=== PATIENT | female | born 1960 | race Caucasian/White ===

== ENCOUNTER 2018-06-08 08:29 | Inpatient (IN) ==
[2018-06-08] MEDS ORDERED: Vancomycin Inj 1 GM/200 ML PIGGYBACK IV.SIG SCH (09:00)
[2018-06-08] MEDS ORDERED: Chlorhexidine Gluconate 2% 1 Pack (2 Cloths) TOPICAL SCH (09:15)
[2018-06-08] MEDS ORDERED: Metoprolol Tartrate 25 MG Tablet PO SCH (09:15)
[2018-06-08 09:34] LABS: Baso # (Auto) 0.1 th/mm3 (0.0-0.2); Baso % (Auto) 1.3 % (0.0-2.0); Eos # (Auto) 0.1 th/mm3 (0.0-0.4); Eos % (Auto) 2.9 % (0.0-4.0); Hematocrit 41.8 % (35.0-46.0); Hemoglobin 14.3 gm/dL (11.6-15.3); Lymph # (Auto) 1.1 th/mm3 (1.0-4.8); Lymph % (Auto) 24.3 % (9.0-44.0); Mean Corpuscular HGB Conc 34.2 % (32.0-36.0); Mean Corpuscular Hemoglobin 33.2 pg (27.0-34.0); Mean Corpuscular Volume 97.1 fL (80.0-100.0); Mean Platelet Volume 8.6 fL (7.0-11.0); Mono # (Auto) 0.5 th/mm3 (0.0-0.9); Mono % (Auto) 11.8 % (0.0-8.0); Neut # (Auto) 2.7 th/mm3 (1.8-7.7); Neut % (Auto) 59.7 % (16.0-70.0); Platelet Count 251 th/mm3 (150-450); Red Blood Count 4.31 mil/mm3 (4.00-5.30); Red Cell Distribution Width 13.1 % (11.6-17.2); White Blood Count 4.6 th/mm3 (4.0-11.0)
[2018-06-08 09:59] LABS: Alanine Aminotransferase 56 U/L (10-53); Alkaline Phosphatase 126 U/L (45-117); Total Protein 8.4 g/dL (6.4-8.2)
[2018-06-08] MEDS ORDERED: Sodium Chlor 0.9% Inj 500 ML IV.SIG SCH (10:00)
[2018-06-08] MEDS ORDERED: Vancomycin Inj 1,000 MG in Sodium Chlor 0.9% Inj 250 ML IV.SIG SCH (10:00)
[2018-06-08 10:13] LABS: Albumin 4.2 g/dL (3.4-5.0); Anion Gap 6 meq/L (5-15); Blood Urea Nitrogen 4 mg/dL (7-18); Calcium 9.7 mg/dL (8.5-10.1); Carbon Dioxide 28.4 meq/L (21.0-32.0); Chloride 99 meq/L (98-107); Glomerular Filtration Rate Greater Than 89 mL/min (>89); Glucose,Random 80 mg/dL (74-106); Sodium 133 meq/L (136-145)
[2018-06-08 10:21] LABS: Aspartate Aminotransferase 64 U/L (15-37); Potassium 5.3 meq/L (3.5-5.1)
[2018-06-08 11:49] LABS: Alanine Aminotransferase 49 U/L (10-53); Albumin 3.8 g/dL (3.4-5.0); Alkaline Phosphatase 112 U/L (45-117); Anion Gap 6 meq/L (5-15); Aspartate Aminotransferase 41 U/L (15-37); Blood Urea Nitrogen 5 mg/dL (7-18); Carbon Dioxide 29.5 meq/L (21.0-32.0); Chloride 101 meq/L (98-107); Glomerular Filtration Rate Greater Than 89 mL/min (>89); Glucose,Random 82 mg/dL (74-106); Potassium 4.1 meq/L (3.5-5.1); Sodium 136 meq/L (136-145)
[2018-06-08] MEDS ORDERED: Neostigmine Inj 5 MG/5 ML Syringe IV.PUSH ONE (12:00)
[2018-06-08] MEDS ORDERED: Lidocaine PF 1% Inj 5 ML Syringe INFILTRATN ONE (12:00)
[2018-06-08] MEDS ORDERED: Glycopyrrolate Inj 1 MG/5 ML Syringe IV.PUSH ONE (12:00)
[2018-06-08] MEDS ORDERED: hydrALAZINE HCl Inj 20 MG/ML Vial IV.PUSH ONE (12:00)
[2018-06-08] MEDS ORDERED: Ketorolac Inj 30 MG/ML (IVP) Vial IV.PUSH ONE (12:00)
[2018-06-08] MEDS ORDERED: Ropivacaine 0.5% PF Inj 20 ML Vial ONE (12:37)
[2018-06-08] MEDS ORDERED: fentaNYL Citrate Inj 250 MCG/5 ML Ampul ONE (12:37)
[2018-06-08] MEDS: Bupivacaine/Epinephrine Inj 0.25% 50 ML Vial ONE ×2 (13:34→19:26)
--- NOTE | 2018-06-08 14:42 | ECG ---
Date Performed: 06/08/2018 Time Performed: 09:09:55 PTAGE: 57 years EKG: Sinus rhythm POSSIBLE RIGHT VENTRICULAR CONDUCTION DELAY BORDERLINE ECG NO PREVIOUS TRACING DOCTOR: Ronak Gutierres Interpretating Date/Time 06/08/2018 14:36:52
[2018-06-08] MEDS ORDERED: *morphine SULFATE 10 MG/ML PERIprocedure ONLY ONE (15:40)
[2018-06-08] MEDS ORDERED: Bisacodyl 10 MG Supp RECTAL PRN (15:46)
[2018-06-08] MEDS ORDERED: Post-op Orders (for Pharmacy) OTHER ONE (15:46)
[2018-06-08] MEDS ORDERED: Naloxone Inj 0.4 MG/ML Vial IV.PUSH PRN ×2 (15:46→15:50)
[2018-06-08] MEDS ORDERED: Promethazine 25 MG Supp RECTAL PRN (15:46)
[2018-06-08] MEDS ORDERED: Morphine Inj 4 MG/ML Vial IV.PUSH PRN (15:46)
--- NOTE | 2018-06-08 15:46 | P.OP ---
- Preoperative Diagnosis (1) Epigastric hernia - Postoperative Diagnosis (1) Epigastric hernia (2) Umbilical hernia Date of procedure: 06/09/18 Procedure: Laparoscopic epigastric hernia repair with [place]-Alex DualMesh Primary umbilical hernia repair Implants: 14 x 19 cm [place]-Alex DualMesh Anesthesia: SANDRA Surgeon: Lopez Mccoy MD Customer Experience Intern: Cara Dent CFA Estimated blood loss (mL): 20 IV fluids (mL): 1,400 Pathology: none sent Operation and Findings: The patient was taken to the operating room and placed on the operating table in the supine position. After an adequate level of general endotracheal anesthesia was achieved, transabdominal peritoneal block was accomplished bilaterally. The abdomen was then prepped and draped in the usual fashion. Timeout was taken , confirming the correct patient, site, and procedure to be performed. Skin and subcutaneous tissue was infiltrated with local anesthetic and an incision made in the left upper quadrant. Muscles were bluntly. As the peritoneal cavity was not directly visualized, a 5 mm trocar was brought in via the right upper quadrant under direct vision utilizing the laparoscope. This entered the abdominal cavity under direct vision uneventfully. The left upper quadrant trocar was then able to be placed after opening the peritoneum which was the only layer left in the dissection. The balloon was then inflated. 2 5 mm trochars were then placed with one in the left lower quadrant and one in the right lower quadrant. Both were placed under direct vision uneventfully. The patient was noted to have a small umbilical hernia as well as the epigastric hernia. Fatty tissue was taken down out of the epigastric hernia and the falciform ligament was taken down as well so that the mesh would sit on fascia and not have fat underneath to minimize risk of recurrence. The umbilical hernia was repaired using #1 V-lock looped suture. This was placed in a running fashion with the suture run back across itself. When this was completed, the hernia defect was measured and a 15 x 19 cm [place] Alex DualMesh was chosen to overlap the previous defect. The mesh had four 0- [place] sutures placed in it and the mesh was then rolled up and placed into the abdominal cavity. The mesh was unfurled and tacked into place with the 4 sutures utilizing the suture passer device. The mesh was appropriately spread apart and the Capture device was used to tack the mesh around the perimeter. When this was completed the inferior part of the mesh was found to be overlapped beyond the umbilicus. Thus there was mesh overlap over the umbilical hernia repair. When this was completed, four additional 0 [place] sutures were used in between the previously placed 4 sutures. When this was completed insufflation was discontinued and the trocars were removed under direct vision. No bleeding was noted from the trocar sites. The laparoscope and left upper quadrant port were removed. The fascia was closed in the left upper quadrant with 0 Vicryl suture. The skin was closed at all of the trocar sites with 4-0 Vicryl in an interrupted buried fashion. All sites were dressed with Steri-Strips. The patient was extubated and had abdominal binder placed. She was taken back to the recovery room in stable condition. Sponge and needle counts were reported to be correct.
[2018-06-08] MEDS ORDERED: Morphine Inj 30 MG/30 ML PCA.VIAL PCA PRN (15:50)
[2018-06-08] MEDS ORDERED: Morphine Inj 30 MG/30 ML PCA.VIAL PCA ONE (15:58)
[2018-06-08] MEDS: Sod Chloride 0.9% Inj 1,000 ML IV.CONT SCH (16:00)
[2018-06-08] MEDS: Senna/Docusate Sodium 8.6/50 MG Tablet PO SCH (20:45)
[2018-06-08] MEDS: Famotidine 20 MG Tablet PO SCH (20:45)
[2018-06-09] MEDS: Sod Chloride 0.9% Inj 1,000 ML IV.CONT SCH ×3 (02:51→21:34)
[2018-06-09] MEDS: Famotidine 20 MG Tablet PO SCH ×2 (08:50→21:33)
[2018-06-09] MEDS: Senna/Docusate Sodium 8.6/50 MG Tablet PO SCH ×2 (08:50→21:34)
--- NOTE | 2018-06-09 12:12 | P.PN ---
Subjective Interval history: Feels well; reports no flatus yet. Minimal to no pain. 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 Physical Exam Vital signs: Vital Signs 06/08/18 15:28 06/08/18 15:45 06/08/18 16:00 Temperature 97.4 F L Pulse Rate 87 88 70 Respiratory Rate 17 17 17 Blood Pressure 148/74 H 158/72 H 141/77 H Pulse Oximetry 06/08/18 16:46 06/08/18 17:31 06/08/18 19:31 Temperature Pulse Rate 87 Respiratory Rate 17 17 Blood Pressure 135/78 Pulse Oximetry 95 06/08/18 20:00 06/09/18 00:00 06/09/18 04:00 Temperature 97.3 F L 97.3 F L 97.3 F L Pulse Rate 56 L 62 61 Respiratory Rate 18 18 18 Blood Pressure 143/66 H 137/63 135/76 Pulse Oximetry 98 99 96 06/09/18 08:00 06/09/18 08:45 06/09/18 11:25 Temperature 97.6 F Pulse Rate 90 Respiratory Rate 18 Blood Pressure 146/86 H Pulse Oximetry 92 L 87 L 95 Intake & Output 06/08/18 06/09/18 06/09/18 18:59 06:59 18:59 Intake Total 1850 / 1850 1780 / 1780 Output Total 30 / 30 Balance 1820 / 1820 1780 / 1780 Weight 49.6 kg 53.2 kg Intake: IV 450 / 450 1300 / 1300 NS Inj 1,000 ML @ 100 mls/hr IV 1000 / 1000 .CONT .Q10H STEPHENIE Rx#:[id number] Ofirmev Inj 1,000 mg In 100 ml 100 / 100 300 / 300 @ 400 mls/hr IV.SIG Q6H STEPHENIE Rx# :[id number] Vancomycin Inj 1,000 MG In NS 250 / 250 Inj 250 ML @ 200 mls/hr IV.SIG PRIMARY MILL ROLLER STEPHENIE Rx#:[id number] Ancef Inj 1,000 MG In NS Inj 100 / 100 100 ML @ 200 mls/hr IV.SIG PRIMARY MILL ROLLER STEPHENIE Rx#:[id number] Oral 480 / 480 Anesthesia Amount 1400 / 1400 Output: Estimated Blood Loss 30 / 30 Other: # Voids 3 Date of Last Bowel Movement 06/07/18 Weight On Admission 49.6 kg Results - Labs CBC & Chem 7: 06/08/18 08:10 06/08/18 11:14 Assessment and Plan - Assessment (1) Epigastric hernia Code(s): K43.9 - Ventral hernia without obstruction or gangrene Status: Acute Plan: Postop day 1 status post laparoscopic repair with [place]-Alex DualMesh. Doing well. Requiring oxygen for likely untreated and undiagnosed COPD from long- term smoking history. Will try to wean O2 before she leaves. Will decrease IV fluids also. (2) Umbilical hernia Code(s): K42.9 - Umbilical hernia without obstruction or gangrene Status: Acute - Plan Discussed Condition With: Patient, nurse Monie Giron, sister. - Attending Attestation I attest that I had a [id number] encounter with the patient on the same day, and personally performed and documented my assessment and findings in the medical record. The following services were provided during this hospital visit: Chart data review, vital sign assessments/reviewing monitor data Review of consultation notes if present Medication orders/review and/or management Ordering and/or reviewing lab tests Ordering and/or interpreting/reviewing x-rays and/or diagnostic studies Care of the patient and discussion of the patient with the care team Documentation time To help prompt me to consider important information that might be impacting today's encounter and assessment, Information from prior notes written by myself or my colleagues may have been "brought forward/copy and pasted" into today's note.
[2018-06-09] MEDS: Enoxaparin Inj 40 MG/0.4 ML Syringe SQ SCH (14:22)
--- NOTE | 2018-06-09 15:33 | XR ---
EXAM DATE: 06/09/2018 3:05 PM EDT AGE/SEX: 57 years / Female INDICATIONS: Shortness of breath. CLINICAL DATA: This is the patient's initial encounter. Patient reports that signs and symptoms have been present for 1 day and indicates a pain score of 0/10. MEDICAL/SURGICAL HISTORY: None. None. COMPARISON: No prior exams available for comparison. FINDINGS: There is a mild infiltrate in the right lung base. The left lung is grossly clear. The heart size is upper limits of normal. The bony structures are grossly intact. There are no pleural effusions or pul monary edema. CONCLUSION: Mild infiltrate in the right lung base. Electronically signed by: Darryl Carlson MD 06/09/2018 3:31 PM EDT
[2018-06-10] MEDS: Senna/Docusate Sodium 8.6/50 MG Tablet PO SCH ×2 (08:32→20:17)
[2018-06-10] MEDS: Famotidine 20 MG Tablet PO SCH ×2 (08:32→20:17)
[2018-06-10] MEDS: Sod Chloride 0.9% Inj 1,000 ML IV.CONT SCH ×2 (10:53→13:02)
--- NOTE | 2018-06-10 11:24 | P.PNGS ---
Subjective Patient reports: no new complaints, no flatus, no bowel movement (HTN) Physical Exam Vital signs: Vital Signs 06/09/18 11:25 06/09/18 12:00 06/09/18 15:42 Temperature 97.6 F Pulse Rate 69 Respiratory Rate 18 Blood Pressure 148/67 H Pulse Oximetry 95 96 95 06/09/18 15:47 06/09/18 20:00 06/10/18 00:00 Temperature 97.4 F L 98 F 98 F Pulse Rate 66 84 83 Respiratory Rate 18 17 17 Blood Pressure 162/75 H 182/79 H 194/88 H Pulse Oximetry 99 96 17 L 06/10/18 04:00 06/10/18 06:02 06/10/18 08:00 Temperature 98.1 F 98.1 F Pulse Rate 97 H 84 Respiratory Rate 18 18 Blood Pressure 208/96 H 182/88 H 180/80 H Pulse Oximetry 93 L 93 L 06/10/18 08:31 Temperature Pulse Rate Respiratory Rate Blood Pressure Pulse Oximetry 94 L Intake & Output 06/09/18 06/10/18 06/10/18 18:59 06:59 18:59 Intake Total 1720 / 1720 1480 / 1480 1000 / 1000 Balance 1720 / 1720 1480 / 1480 1000 / 1000 Intake: IV 1000 / 1000 1000 / 1000 1000 / 1000 NS Inj 1,000 ML @ 30 mls/hr IV. 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
[2018-06-10] MEDS: amLODIPine 5 MG Tablet PO SCH (13:14)
[2018-06-10] MEDS: Enoxaparin Inj 40 MG/0.4 ML Syringe SQ SCH (15:12)
[2018-06-10] MEDS ORDERED: LORazepam 1 MG Tablet PO PRN (17:29)
[2018-06-10] MEDS ORDERED: Haloperidol Inj 5 MG/ML Ampul IV.PUSH PRN (17:29)
--- NOTE | 2018-06-10 17:39 | P.CONIM ---
History of Present Illness Consult date: 06/10/18 Reason for Consult: Medical management Primary Care Provider: No Primary Care Physician Chief Complaint: Abdominal hernia History of Present Illness: The patient is a 57-year-old female with a past medical history of hypertension who is presenting to the hospital for an elective abdominal hernia repair. The patient states that about 5 months ago she developed an abdominal hernia. She said that she had minimal symptoms but had tenderness in the area every once in a while. She followed up with surgery about 2 weeks ago to schedule the repair of the hernia. She says that she had the surgery on Monday. She said she was dizzy following the surgery. She says she can go home on the day of the surgery because she had surgery late in the day. She did not go home yesterday because her blood pressure was high. Medicine has been consulted for high blood pressure. The patient states that her pain is a 4 out of 10 in severity. She is passing gas. The patient states that she has been told she had a hernia when she was born but has never had any problems with it until 5 months ago. The patient says she has not been taking blood pressure medications for the past year because of insurance problems. She believes she was on lisinopril and amlodipine in the past. Discussed with nursing. Review of Systems All other systems reviewed negative except as stated in HPI PMFSH - History History Provided By: Patient - Medical History Medical History: Medical History (Last Updated 06/10/18 @ 17:34 by Lopez Gonsales DO) Hypertension Hiatal hernia History of ankle fracture - Surgical History Surgical History: Surgical History (Last Reviewed 06/08/18 @ 09:01 by Yasmin Ying) History of open reduction and internal fixation (ORIF) procedure - Family History Family History: Family History (Last Updated 06/10/18 @ 17:34 by Lopez Gonsales DO) Other Patient denies significant medical history - Tobacco History Second Hand Smoke Exposure: Yes Tobacco Use In Past 30 Days: Yes (The patient states that she quit smoking 1 week ago) Smoking Status: Current every day smoker Tobacco Type: Cigarettes - Alcohol History How Often Do You Have a Drink Containing Alcohol: 4 or more times a week (2-6 beers daily) - Substance Use History Substance History: No History of Abuse - Travel History Recent Travel in the [facility] Within the Last 8 Weeks: No Recent Travel Out of the Country Within the Last 8 Weeks: No Medications and Allergies Active Medications: Active Medications Hydrocodone Bitart/Acetaminophen ([place] 10/325) 1 tab PO Q4H PRN PRN Reason: PAIN SCALE 6 TO 10 Last Admin: 06/10/18 11:46 Dose: 1 tab Hydrocodone Bitart/Acetaminophen ([place] 5/325) 1 tab PO Q4H PRN PRN Reason: PAIN SCALE 3 TO 5 Al Hydroxide/Mg Hydroxide (Milk Of Magnesia Liq) 30 ml PO Q12H PRN PRN Reason: Mild Constipation Albuterol (Ventolin Hfa Inh) 2 puff INH Q6HR [facility] Last Admin: 06/10/18 17:28 Dose: 2 puff Amlodipine Besylate (Norvasc) 5 mg PO DAILY [facility] Last Admin: 06/10/18 13:14 Dose: 5 mg Bisacodyl (Dulcolax Supp) 10 mg RECTAL DAILY PRN PRN Reason: SEVERE CONSITIPATION Chlorhexidine Gluconate (Chlorhexidine 2% Cloth) 3 pack [employer] MANAGER [facility] Stop: 06/11/18 09:06 Last Admin: 06/08/18 09:46 Dose: 3 pack Diphenhydramine HCl (Benadryl Inj) 25 mg IV.PUSH Q6H PRN PRN Reason: for itching Enalaprilat (Vasotec Inj) 1.25 mg IV.PUSH Q6H PRN PRN Reason: HYPERTENSION Last Admin: 06/10/18 11:35 Dose: 1.25 mg Enoxaparin Sodium (Lovenox Inj) 40 mg SQ Q24H [facility] Last Admin: 06/10/18 15:12 Dose: 40 mg Famotidine (Pepcid) 20 mg PO BID [facility] Last Admin: 06/10/18 08:32 Dose: 20 mg Cefazolin Sodium 1,000 mg/ (Sodium Chloride) 100 mls @ 200 mls/hr IV.SIG [employer] SCIENCES MANAGER [facility] Stop: 06/11/18 08:59 Last Infusion: 06/08/18 14:08 Dose: Infused Sodium Chloride (Ns Inj) 1,000 mls @ 50 mls/hr IV.CONT .Q20H [facility] Last Admin: 06/10/18 13:02 Dose: 50 mls/hr Lactulose (Lactulose Liq) 30 ml PO DAILY PRN PRN Reason: SEVERE CONSITIPATION Lorazepam (Ativan Inj) 1 mg IV.PUSH Q6H PRN PRN Reason: ANXIETY AND/OR AGITATION Metoprolol Tartrate (Lopressor) 25 mg PO [employer] SCI[employer] MANAGER [facility] Stop: 06/11/18 09:06 Last Admin: 06/08/18 09:45 Dose: Not Given Morphine Sulfate (Morphine Inj) 4 mg IV.PUSH Q3H PRN PRN Reason: BREAKTHROUGH PAIN Naloxone HCl (Narcan Inj) 0.4 mg IV.PUSH UNSCH PRN PRN Reason: SEE LABEL COMMENTS Ondansetron HCl (Zofran Odt) 4 mg PO Q6H PRN PRN Reason: NAUSEA OR VOMITING Ondansetron HCl (Zofran Inj) 4 mg IV.PUSH Q6H PRN PRN Reason: NAUSEA OR VOMITING Povidone Iodine (Betadine 5% Antisepsis Kit) 1 applicatio EACH [employer]ARE [employer] MANAGER [facility] Stop: 06/11/18 09:06 Last Admin: 06/08/18 09:46 Dose: 1 applicatio Promethazine HCl (Phenergan) 25 mg PO Q6H PRN PRN Reason: NAUSEA OR VOMITING Promethazine HCl (Phenergan Supp) 25 mg RECTAL Q6H PRN PRN Reason: NAUSEA OR VOMITING Senna/Docusate Sodium (Judy-Colace) 1 tab PO BID [facility] Last Admin: 06/10/18 08:32 Dose: 1 tab Sennosides (Senokot) 17.2 mg PO Q12H PRN PRN Reason: Moderate Constipation Allergies Allergy/AdvReac Type Severity Reaction Status Date / Time No Known Allergies Allergy Unverified 06/08/18 09:02 Home Medications Medication Instructions Recorded Confirmed Type PNV cmb#95-ferrous fumarate-FA 1 tab PO DAILY 06/06/18 06/08/18 History [] Exam Vital signs: Vital Signs 06/09/18 20:00 06/10/18 00:00 06/10/18 04:00 Temperature 98 F 98 F 98.1 F Pulse Rate 84 83 97 H Respiratory Rate 17 17 18 Blood Pressure 182/79 H 194/88 H 208/96 H Pulse Oximetry 96 17 L 93 L 06/10/18 06:02 06/10/18 08:00 06/10/18 08:31 Temperature 98.1 F Pulse Rate 84 Respiratory Rate 18 Blood Pressure 182/88 H 180/80 H Pulse Oximetry 93 L 94 L 06/10/18 11:46 06/10/18 12:00 06/10/18 12:16 Temperature 98.1 F Pulse Rate 85 Respiratory Rate 18 18 18 Blood Pressure 190/90 H Pulse Oximetry 95 06/10/18 16:00 Temperature 97.7 F Pulse Rate 75 Respiratory Rate 18 Blood Pressure 162/75 H Pulse Oximetry 96 Intake & Output 06/09/18 06/10/18 06/10/18 18:59 06:59 18:59 Intake Total 1720 / 1720 1480 / 1480 1000 / 1000 Balance 1720 / 1720 1480 / 1480 1000 / 1000 Intake: IV 1000 / 1000 1000 / 1000 1000 / 1000 NS Inj 1,000 ML @ 30 mls/hr IV. 1000 / 1000 1000 / 1000 1000 / 1000 CONT .Q24H STEPHENIE Rx#:[id number] Oral 720 / 720 480 / 480 Other: # Voids 3 3 Narrative: GENERAL: No distress HEENT: NC, AT CARDIAC: RRR LUNGS: CTAB GI: Incisions clean and intact, nontender EXTREMITIES: No edema NEURO: No gross deficits Results - Labs CBC & Chem 7: 06/08/18 08:10 06/08/18 11:14 Assessment and Plan - Plan Abdominal hernia S/p repair on 06/08/18. -management per surgery. HTN Acute on chronic. SBP over 200 at times. May be exacerbated by pain and alcohol withdrawal. -start amlodipine 5 mg daily. -add lisinopril if needed. -Vasotec or clonidine as needed. -pain control. Alcohol abuse The pt states she drinks 2-6 beers daily. -cessation instruction. -CIWA protocol. Nicotine abuse The pt smokes 1/2 PPD but states she quit one week prior to surgery. -continue encouragement. PPx: Per surgery
[2018-06-11 07:48] VITALS: O2SAT 96
[2018-06-11] MEDS: Famotidine 20 MG Tablet PO SCH (08:04)
[2018-06-11] MEDS: amLODIPine 5 MG Tablet PO SCH (08:05)
[2018-06-11] MEDS: Senna/Docusate Sodium 8.6/50 MG Tablet PO SCH (08:05)
[2018-06-11] MEDS ORDERED: Lisinopril 20 MG Tablet PO SCH (09:00)
[2018-06-11] MEDS: Sod Chloride 0.9% Inj 1,000 ML IV.CONT SCH (09:25)
--- NOTE | 2018-06-11 10:30 | P.DS ---
Date of admission: 06/08/18 15:46 Primary care physician: No Primary Care Physician Attending physician on discharge: Lopez Alexandra date of discharge: 06/11/18 Brief History from admission: 57 year old female s/p Laparoscopic epigastric hernia repair with [place]-Alex DualMesh and Primary umbilical hernia repair DS: Diagnosis - Discharge Diagnosis (1) Epigastric hernia Status: Acute (2) Umbilical hernia Status: Acute DS: Medications - Discharge Medications Prescriptions: hydrocodone-acetaminophen 1 tab PO Q4H PRN #18 tab PRN Reason: acute post op pain DS: Summary Hospital Course: This is a 57-year-old female status post laparoscopic repair of a epigastric hernia and umbilical hernia. The patient's pain was controlled using oral pain medications. The patient is able to tolerate a regular soft diet. The patient' s bowel activity returned. The patient will follow-up in the office as indicated on the discharge information. Recommended the use of abdominal binder. - Time Spent with Patient Total time spent providing and/or coordinating discharge services: Less than 30 minutes Exam Vital signs: Vital Signs 06/10/18 11:46 06/10/18 12:00 06/10/18 12:16 Temperature 98.1 F Pulse Rate 85 Respiratory Rate 18 18 18 Blood Pressure 190/90 H Pulse Oximetry 95 Pulse Oximetry [Exertion on Room Air] Pulse Oximetry [Resting on Room Air] 06/10/18 16:00 06/10/18 20:00 06/10/18 21:58 Temperature 97.7 F 97.9 F Pulse Rate 75 88 Respiratory Rate 18 17 22 Blood Pressure 162/75 H 209/89 H Pulse Oximetry 96 93 L Pulse Oximetry [Exertion on Room Air] Pulse Oximetry [Resting on Room Air] 06/11/18 00:00 06/11/18 07:47 06/11/18 08:00 Temperature 97.4 F L 98.1 F Pulse Rate 82 69 Respiratory Rate 17 17 Blood Pressure 167/87 H 196/94 H Pulse Oximetry 95 96 94 L Pulse Oximetry [Exertion on Room Air] Pulse Oximetry [Resting on Room Air] 06/11/18 08:47 06/11/18 08:58 Temperature Pulse Rate Respiratory Rate Blood Pressure Pulse Oximetry 96 Pulse Oximetry [Exertion on Room Air] 94 L Pulse Oximetry [Resting on Room Air] 96 Intake & Output 06/10/18 06/11/18 06/11/18 18:59 06:59 18:59 Intake Total 2200 / 2200 Balance 2200 / 2200 Intake: IV 1000 / 1000 NS Inj 1,000 ML @ 30 mls/hr IV. 1000 / 1000 CONT .Q24H STEPHENIE Rx#:[id number] Oral 1200 / 1200 Other: # Voids 4 Narrative: Alert and awake Cardio: RRR Resp: CTAB Abd: lap sites c/d/i; minimal tenderness to palpation Results Procedures completed during hospitalization: Laparoscopic repair of epigastric hernia and umbilical hernia repair - Impressions ITS Impressions Chest X-Ray 06/09/18 00:00 CONCLUSION: Mild infiltrate in the right lung base. Discharge Plan - Discharge Disposition Patient Disposition: Discharge Home - Discharge Condition Condition: Good - Discharge Details Anticipated Discharge Date: 06/11/18 Discharge Comment: rx on chart - Physicians Team Primary Care Provider: Primary Care Maggie Bedoya Attending Provider: Lopez Mccoy Other Providers: Lopez Gonsales DO - Rxs /Orders / Referrals /Forms Prescriptions: New hydrocodone-acetaminophen 10-325 mg Tablet 1 tab PO Q4H PRN (Reason: acute post op pain) Qty: 18 RF: 0 Continue PNV cmb#95-ferrous fumarate-FA [] 28 mg iron- 800 mcg Tablet 1 tab PO DAILY Referrals: Lopez Mccoy MD [GENERAL SURGERY] - See Instructions (Follow up appointment set for MondayJune 18 at 3PM) Primary Care Maggie Bedoya [Primary Care Provider] - See Instructions - Discharge Instructions Patient Printed Instructions: Hydrocodone/Acetaminophen (By mouth), Wound Infection (DC), Steristrips (ED), Ventral Hernia Repair (DC) - Post Discharge Care Plan Care Plan Goals: Your appointment has been scheduled for a Follow up appointment set for MondayJune [address] Mccoy at 3:00pm If you cannot make this appointment, please call the office to reschedule Your Health Problems: Goals to Promote Your Health: * To prevent worsening of your condition * To maintain your health at the optimal level Directions to Meet Your Goals: * Take your medications as prescribed * Follow your dietary instruction * Follow activity as directed * Keep your appointments as scheduled * Take your immunizations and boosters as scheduled * If your symptoms worsen call your PCP * If no PCP go to Urgent Care or Emergency Room Smoking is dangerous to your health. Avoid second hand smoke. You may reach the 24-hour crisis hotline for domestic abuse at .
[2018-06-11 11:09] VITALS: PULSE 67
[2018-06-11 12:09] LABS: Anion Gap 10 meq/L (5-15); Blood Urea Nitrogen 4 mg/dL (7-18); Carbon Dioxide 28.5 meq/L (21.0-32.0); Chloride 93 meq/L (98-107); Glomerular Filtration Rate Greater Than 89 mL/min (>89); Glucose,Random 125 mg/dL (74-106); Sodium 131 meq/L (136-145)
[2018-06-11 12:23] LABS: Potassium 2.9 meq/L (3.5-5.1)
[2018-06-11] MEDS ORDERED: Potassium Chloride 25 MEQ Effervescent Tablet PO ONE (12:31)
[2018-06-11 13:06] VITALS: BP 173/80; RESP 18; TEMP 98
--- NOTE | 2018-06-11 15:57 | P.PNIM ---
Subjective Interval history: The patient was feeling well and hoping to go home. Discussed with surgery and nursing. Physical Exam Vital signs: Vital Signs 06/10/18 16:00 06/10/18 20:00 06/10/18 21:58 Temperature 97.7 F 97.9 F Pulse Rate 75 88 Respiratory Rate 18 17 22 Blood Pressure 162/75 H 209/89 H Pulse Oximetry 96 93 L Pulse Oximetry [Exertion on Room Air] Pulse Oximetry [Resting on Room Air] 06/11/18 00:00 06/11/18 07:47 06/11/18 08:00 Temperature 97.4 F L 98.1 F Pulse Rate 82 69 Respiratory Rate 17 17 Blood Pressure 167/87 H 196/94 H Pulse Oximetry 95 96 94 L Pulse Oximetry [Exertion on Room Air] Pulse Oximetry [Resting on Room Air] 06/11/18 08:47 06/11/18 08:58 06/11/18 11:08 Temperature Pulse Rate 67 Respiratory Rate Blood Pressure 182/86 H Pulse Oximetry 96 Pulse Oximetry [Exertion on Room Air] 94 L Pulse Oximetry [Resting on Room Air] 96 06/11/18 12:00 Temperature 98.0 F Pulse Rate 67 Respiratory Rate 18 Blood Pressure 173/80 H Pulse Oximetry 96 Pulse Oximetry [Exertion on Room Air] Pulse Oximetry [Resting on Room Air] Intake & Output 06/10/18 06/11/18 06/11/18 18:59 06:59 18:59 Intake Total 2200 / 2200 500 / 500 Balance 2200 / 2200 500 / 500 Intake: IV 1000 / 1000 500 / 500 NS Inj 1,000 ML @ 50 mls/hr IV. 1000 / 1000 500 / 500 CONT .Q20H STEPHENIE Rx#:[id number] Oral 1200 / 1200 Other: # Voids 4 Narrative: GENERAL: No distress HEENT: NC, AT CARDIAC: RRR LUNGS: CTAB GI: Incisions clean and intact, nontender EXTREMITIES: No edema NEURO: No gross deficits Results - Labs CBC & Chem 7: 06/08/18 08:10 06/11/18 11:22 Laboratory Results - last 24 hr 06/11/18 11:22 Sodium 131 L Potassium 2.9 L* Chloride 93 L Carbon Dioxide 28.5 Anion Gap 10 BUN 4 L Creatinine 0.45 L Estimated GFR Greater than 89 Random Glucose 125 H Calcium 9.0 - Procedures Laparoscopic repair of epigastric hernia and umbilical hernia repair Assessment and Plan - Plan Abdominal hernia S/p repair on 06/08/18. -management per surgery. HTN Acute on chronic. SBP over 200 at times. May be exacerbated by pain and alcohol withdrawal. -start amlodipine 5 mg daily. -add lisinopril 20 mg daily. -Vasotec or clonidine as needed. -pain control. Alcohol abuse The pt states she drinks 2-6 beers daily. -cessation instruction. -WA protocol. Nicotine abuse The pt smokes 1/2 PPD but states she quit one week prior to surgery. -continue encouragement. Hypokalemia S/p PO repletion. -ADAT. -outpt follow-up. PPx: Per surgery
== END 2018-06-11 15:17 | disposition home or self-care (01) ==
LOC: HSDC 08:29 → HSDI 15:46 → N07 17:06
PROVIDERS: ADMIT Surgery Trauma Surgery; ATTEND Surgery Trauma Surgery